=== PATIENT | male | born 1990 | race Caucasian/White ===

== ENCOUNTER 2022-01-28 22:19 | Emergency (ER) | payer MEDICAID, SELFPAY ==
[2022-01-28 22:26] VITALS: BP 130/63; PULSE 70; RESP 16; TEMP 36.6; O2SAT 100
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
--- NOTE | 2022-01-28 22:37 | DI.RAD_ITS ---
Exam(s) XR WRIST RT COMPLETE EXAM: XR WRIST RT COMPLETE CLINICAL HISTORY: trauma. TECHNIQUE: 2D digital imaging was performed. COMPARISON: No exams were available for comparison FINDINGS: 3 views No evidence of fracture or dislocation. Mild negative ulnar variance noted. Scaphoid and scapholuna te distance are normal. No degenerative changes. No osseous lesions. No radiopaque foreign body. IMPRESSION: No significant findings DATA REPOSITORY: RADIATION DOSE DELIVERED:
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
== END 2022-01-28 23:49 | disposition home or self-care (01) ==
PROVIDERS: Emergency Provider Nurse Practitioner Family
DX: S63.501A Unspecified sprain of right wrist, initial encounter (principal); S40.212A Abrasion of left shoulder, initial encounter; S30.811A Abrasion of abdominal wall, initial encounter; S40.812A Abrasion of left upper arm, initial encounter; V86.56XA Driver of dirt bike or motor/cross bike injured in nontraffic accident, initial encounter
CPT/HCPCS: 29125; 99284; 73090; 73110; 99282

== ENCOUNTER 2023-08-28 12:42 | Emergency (ER) | payer MEDICAID, SELFPAY ==
--- NOTE | 2023-08-28 12:30 | RT.EKG_ITS ---
APPROVED REPORT Exam: Resting ECG Reason for Exam: chest pain Patient Location: E HR:74 bpm ECG Measurements Heart Rate 74 AXIS AR 155 P 73 QRSd 102 QRS 72 QT 373 T 61 QTc 413 Conclusion Sinus rhythm...normal P axis, V-rate 60- 99 ST elevation suggests acute pericarditis...ST >0.10mV, ant/lat/inf sinus rhythm, normal axis, normal intervals, J point elevations
[2023-08-28 12:48] VITALS: BP 144/78; PULSE 87; RESP 16; TEMP 36.6; O2SAT 98
[2023-08-28 13:02] VITALS: RESP 16
[2023-08-28] MEDS: Colchicine 0.6 MG TAB PO (13:40)
[2023-08-28] MEDS: Ketorolac 15 MG/ML VIAL IVP (13:41)
--- NOTE | 2023-08-28 13:43 | ED.GENADUL_ITS ---
Discharge Plan Disposition Patient Disposition: Home Condition: Stable Discharge Details Clinical Impression: Chest pain Primary Care Provider: Unknown,Unknown ED Provider: Raymond Ramos Home Meds and New Rx's Prescriptions: New colchicine 0.6 mg capsule 0.6 mg PO BID 10 Days Qty: 20 0RF Rx Instructions: take 0.6 mg BID until symptoms resolve, then transition to 0.6mg ONCE daily dose ibuprofen 600 mg tablet 600 mg PO TID 10 Days Qty: 30 0RF Rx Instructions: take 600 mg TID until symptoms resolve, then taper to 600 mg once daily Discharge Instructions Instructions: Chest Pain (ED), Acute Pericarditis (ED) Additional Instructions: Please return to the emerged part for any worsening symptoms HPI General Date/Time Provider Initiated Documentation: 08/28/23 13:26 . HPI Narrative: 32-year-old male no past medical history presents with sharp chest discomfort worse in certain positions; denies recent immobilization surgery trauma or other thromboembolic risk factors. No history of coronary disease. No recent foreign travel. Denies leg swelling or pain Related Data Home Medications Medication Instructions Recorded Confirmed colchicine 0.6 mg capsule 0.6 mg PO BID 10 days #20 caps 08/28/23 ibuprofen 600 mg tablet 600 mg PO TID 10 days #30 tabs 08/28/23 Previous Rx's Medication Instructions Recorded colchicine 0.6 mg capsule 0.6 mg PO BID 10 days #20 caps 08/28/23 ibuprofen 600 mg tablet 600 mg PO TID 10 days #30 tabs 08/28/23 Allergies Allergy/AdvReac Type Severity Reaction Status Date / Time bees Allergy Hives Uncoded 08/28/23 12:48 General Stated Complaint: Chest Pain SHIRLEY: 3 Review of Systems Narrative: Review of Systems Constitutional: negative Eyes: negative ENT: negative Cardiovascular: Chest pain Respiratory: negative Gastrointestinal: negative : negative Musculoskeletal: negative Skin: negative Neurologic: negative Psych: negative Exam Narrative Exam Narrative: Physical Examination General: alert, awake, cooperative, resting comfortably, no acute distress HEENT: normocephalic, atraumatic; PERRL, EOM intact, conjunctiva normal; no nasal discharge; moist mucous membranes, oral and pharyngeal mucosa normal, tolerating secretions Neck: supple, trachea midline; full ROM Chest: normal to inspection Respiratory: normal respiratory effort, speaking in full sentences Skin: no lesions, rashes or trauma appreciated Neuro: AAOx3, normal speech, moving all extremities Extremities: No peripheral edema Psych: Appropriate mood and affect Course Vital Signs Vital signs: Vital Signs Temperature 36.6 C 08/28/23 12:48 Pulse 87 08/28/23 12:48 Respiratory Rate 16 08/28/23 12:48 Blood Pressure 144/78 H 08/28/23 12:48 Pulse Oximetry 98 08/28/23 12:48 Temperature 36.6 C 08/28/23 12:48 Temperature Source Temporal Artery Scan 08/28/23 12:48 Pulse 87 08/28/23 12:48 Respiratory Rate 16 08/28/23 13:02 Respiratory Effort Normal, Non-Labored 08/28/23 13:02 Respiratory Depth Normal 08/28/23 13:02 Respiratory Pattern Normal 08/28/23 13:02 Blood Pressure 144/78 H 08/28/23 12:48 Blood Pressure Position Sitting 08/28/23 12:48 Pulse Oximetry 98 08/28/23 12:48 Oxygen Delivery Method Room Air 08/28/23 12:48 Oxygen Flow Rate 0 08/28/23 12:48 Pain Level 0 08/28/23 13:02 Medical Decision Making 32-year-old male presents with 1 day of intermittent sharp chest discomfort worse with position. No thromboembolic risk factors, no coronary disease risk factors. No recent trauma no recent surgery no recent foreign travel no leg s welling or pain. Patient is normoxic normal heart rate EKG showing likely J- point elevation versus must consider pericarditis pattern; low suspicion for PE or aortic pathology. Muscles consider pneumothorax versus pleurisy versus costochondritis versus muscular strain; [id number] cardiac ultrasound showing normal ventricular squeeze, no pericardial effusion, normal thickness pericardium; will obtain screening labs, troponin, chest x-ray, will load with colchicine and NSAID. Will presumptively treat as pericarditis if any signs of myopericarditis will consider admission for further inpatient diagnostics and treatment 15: 04 patient resting early no acute distress. No shortness of breath. Intermittent minor sharp left anterior chest discomfort with movement. Upon second review of EKG consider likely J-point elevation versus true diffuse ST segment elevation patient has no elevation of white count or ESR. Had extensive shared decision discussion with patient regarding treatment versus watchful waiting of symptomatology regarding possible pericarditis. Consider high likelihood of costochondritis versus pleurisy. Low suspicion for ACS and PE. I will prescribe patient high-dose NSAID regimen as well as colchicine regiment for him to initiate if symptoms persist over the next couple days however patient feels acutely better is asymptomatic and stable consider not taking medications given side effect profile. Given strict return precautions for any worsening symptoms. Patient understands and is in agreement. Quality:SDOH Health Related Social Needs: No Data to Display PFSH All Active Problems (Updated 08/28/23 @ 15:17 by Raymond Ramos MD) Chest pain (Acute) Social History Smoking/Tobacco Use Status: Never Smoking risk assessment performed?: Yes Alcohol Intake: current Alcohol Intake frequency: holidays/special occasions only Alcohol type: beer Drug use: Never Substance use type: does not use Housing: house Do you feel safe at home: Yes Do you feel safe in your relationship?: Yes
[2023-08-28 13:54] LABS: Abs Immature Grans 0.02 10^3/uL (0.0-0.06); Absolute Basophil Count 0.06 10^3/uL (0.0-0.2); Absolute Eosinophil Count 0.06 10^3/uL (0.0-0.7); Absolute Lymphocyte Count 1.76 10^3/uL (1.2-3.4); Absolute Monocyte Count 0.56 10^3/uL (0.1-0.8); Basophils % 0.8; Eosinophils % 0.8; HCT 45.1 % (40.0-50.0); HGB 15.3 g/dL (13.5-17.5); Immature Grans % 0.3; MCH 30.8 pg (27.0-33.0); MCHC 33.9 % (32.0-36.0); MCV 91 fL (80-95); MPV 10.8 fL (8.0-11.0); Monocytes % 7.3; Neutrophils % 67.8; Platelet Count 296 10^3/uL (130-400); RBC 4.97 10^6/uL (4.36-5.78); RDW 12.6 % (11.8-14.1); RDW-SD 41.5 fL; WBC 7.66 10^3/uL (4.4-10.8)
[2023-08-28 13:57] LABS: ESR 4 mm/hr (0-15)
[2023-08-28 14:20] LABS: ALT 33 U/L (16-63); AST 20 U/L (15-37); Albumin 4.1 g/dL (3.4-5.0); Alkaline Phosphatase 41 U/L (46-116); BUN 19 mg/dL (7-18); Bilirubin, Total 0.5 mg/dL (0.2-1.0); CREATININE 0.8 mg/dL (0.70-1.30); Calcium 9.1 mg/dL (8.5-10.1); Chloride 103 mmol/L (98-107); Estimated GFR 121.34 (mL/min/1.73m2); Glucose 84 mg/dL (74-106); NT-proBNP 31 pg/mL (<300); Sodium 142 mmol/L (136-145); Total Protein 7.8 g/dL (6.4-8.2); Troponin I < 50 ng/L (< or =60)
[2023-08-28 14:35] LABS: INR 1.1 (0.9-1.1); Prothrombin Time 10.8 sec (9.1-11.1)
--- NOTE | 2023-08-28 14:41 | DI.RAD_ITS ---
Exam(s) XR CHEST 2V PA LATERAL EXAM: XR CHEST 2V PA LATERAL CLINICAL HISTORY: postional chest pain. TECHNIQUE: 2D digital imaging was performed. COMPARISON: No exams were available for comparison FINDINGS: 2 views: Heart size is normal. The mediastinum is not widened. Lungs are clear. No infiltrates nor pleural effusions. IMPRESSION: No acute pulmonary findings. DATA REPOSITORY: RADIATION DOSE DELIVERED:
== END 2023-08-28 15:53 | disposition home or self-care (01) ==
LOC: ER 15:56
PROVIDERS: Emergency Provider Emergency Medicine
DX: R07.9 Chest pain, unspecified (principal); R06.02 Shortness of breath
CPT/HCPCS: 80053; 85652; 93005; 96374; 99285; 71046; 83880; 84484; 85025; 85610; 85730; 93010; 99284; J1885

== ENCOUNTER 2025-05-04 13:16 | Emergency (ER) | payer MEDICAID, SELFPAY ==
[2025-05-04 13:24] VITALS: BP 110/62; PULSE 81; RESP 16; TEMP 37.1; O2SAT 98
--- NOTE | 2025-05-04 13:55 | DI.RAD_ITS ---
Exam(s) XR HAND RT COMPLETE EXAM: XR HAND RT COMPLETE CLINICAL HISTORY: hand pain. TECHNIQUE: 2D digital imaging was performed. Three views. COMPARISON: CR,XR XR WRIST RT COMPLETE from 01/28/2022 FINDINGS: BONES: No acute fracture is present. Old healed 5th metacarpal fracture. No bony destructive lesion is seen. JOINTS: No dislocation present. SOFT TISSUE: Normal. IMPRESSION: No acute abnormality. DATA REPOSITORY: RADIATION DOSE DELIVERED:
--- NOTE | 2025-05-04 14:34 | ED.GENADUL_ITS ---
Discharge Plan Disposition Patient Disposition: Home Condition: Good Discharge Details Clinical Impression: Injury of hand, right Primary Care Provider: Unknown,Unknown ED Provider: Lio Epstein Discharge Instructions Instructions: Finger Sprain ED Additional Instructions: At this time your x-ray shows no evidence of fracture. Please wear the wrist splint at all times. Please follow-up closely with your primary care provider for further discussion of outpatient MRI of your wrist and thumb. Please apply topical Voltaren gel/diclofenac gel as needed for pain. If you notice any worsening of your symptoms, or any new symptoms such as vomiting, diarrhea, fever, chills, shortness of breath, chest pain, numbness, weakness, or fainting , please return immediately to the emergency department for reevaluation. Please follow up with your primary care provider as soon as possible for reassessment and reevaluation. As always, it was a pleasure participating in your medical care today. Stand Alone Forms: Portal Information Referrals: Yaritza Thorpe [ [facility] STAFF PHYSICIAN, Medicine] Discharge Data Discharge Date/Time-TO BE ENTERED AT DEPARTURE: 05/04/25 14:49 HPI General Date/Time Provider Initiated Documentation: 05/04/25 13:29 . HPI Narrative: This is a 34-year-old [id number] male who presents today for evaluation of right hand and thumb pain. Patient states that on March 26 he was working and something pushed back on his thumb and hyperextended it back towards his wrist. Since then he has had mild to moderate pain, worse with movement. He has been using an over the the counter brace to help with some stabilization. He denies any numbness or tingling. 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 He denies any other complaints at this time. No other modifying factors. Related Data Allergies Allergy/AdvReac Type Severity Reaction Status Date / Time bees Allergy Hives Uncoded 05/04/25 13:25 General Stated Complaint: Orthopedic SHIRLEY: 4 Exam Narrative Exam Narrative: 1.Const: Well-nourished, Well-developed, appearing stated age 2.Eyes: PERRL, no conjunctival injection, and symmetrical lids. 3.ENT: Atraumatic external nose and ears. Moist MM. Neck: Symmetric, trachea midline, No thyromegaly. 4.CVS: +S1/S2, Peripheral pulses 2+ and equal in all extremities. Brisk capillary refill in all extremities. 5.RESP: Unlabored respiratory effort. Clear to auscultation bilaterally. No wheezes rales or rhonchi 6.GI: Soft, Nontender/Nondistended, No hepatosplenomegaly. No guarding or rebound. 7.MSK: Normocephalic/Atraumatic, Extremities w/o deformity. No cyanosis or clubbing, Normal movement of all extremities Right hand: Symmetrically palpable radial and ulnar pulses. Capillary refill less than 2 seconds to all digits. Intact sensation to light touch of the radial, median and ulnar nerves demonstrated by testing in the dorsal web space of the thumb, the distal palmar aspect of the index finger, and the lateral surface of the fifth finger. 2 point discrimination intact to 5mm (up to 6mm can be normal in digits 3-5) of discrimination in the affected digit. Intact motor function of the radial, median and ulnar nerves demonstrated by strength of extension of the isolated distal joint of the index finger, hand certified orthotist practice manager, and spreading of the 2nd through 5th digits. Intact recurrent median nerve as demonstrated by ability to move thumb fully through opposition, abduction and flexion. No focal snuffbox tenderness however there is pain just slightly distal to that on the proximal first metacarpal. Mild pain at the palmar aspect of the thumb at the proximal MCP joint when strain is made against the medial collateral ligament. No redness, no swelling. No atypical warmth. 8.Skin: Warm, Dry. No rashes or lesions. 9.Neuro: hose wrapper II-XII grossly intact. Sensation grossly intact, no focal neurologic deficits. 10.Psych: (AAO) x3. Appropriate mood and affect Course Vital Signs Vital signs: Vital Signs Temperature 37.1 C 05/04/25 13:24 Pulse 81 05/04/25 13:24 Respiratory Rate 16 05/04/25 13:24 Blood Pressure 110/62 05/04/25 13:24 Pulse Oximetry 98 05/04/25 13:24 Temperature 37.1 C 05/04/25 13:24 Pulse 81 05/04/25 13:24 Respiratory Rate 16 05/04/25 13:24 Blood Pressure 110/62 05/04/25 13:24 Pulse Oximetry 98 05/04/25 13:24 Medical Decision Making This is a 34-year-old [id number] male who presents today for evaluation of right hand and thumb pain. Patient states that on March 26 he was working and something pushed back on his thumb and hyperextended it back towards his wrist. Since then he has had mild to moderate pain, worse with movement. He has been using an over the the counter brace to help with some stabilization. He denies any numbness or tingling. 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 He denies any other complaints at this time. No other modifying factors. Intact recurrent median nerve as demonstrated by ability to move thumb fully through opposition, abduction and flexion. No focal snuffbox tenderness however there is pain just slightly distal to that on the proximal first metacarpal. Mild pain at the palmar aspect of the thumb at the proximal MCP joint when strain is made against the medial collateral ligament. Tenderness appears to be around the location of the ulnar collateral ligament, as well as at the base of the first metacarpal, but not at the anatomic snuffbox. Concern for fracture versus ligamentous injury. X-ray shows no evidence of acute fracture. The patient's [id number] wrist splint/thumb stabilizer does not give adequate support for the thumb in general. Formal thumb spica splint was applied. Patient tolerated this well. I do suspect the patient would benefit from a nonemergent MRI for further differentiation and evaluation of the thumb and injury mechanism. I discussed this with the patient, and he will be following up closely with his primary care provider. I have extensively reviewed the treatment plan and discharge instructions with the patient. I have addressed all patient concerns at this time. The patient was made aware of what symptoms to monitor for that would warrant a return to the emergency department. Discussed the plan with the patient, they demonstrate verbal understanding and agreement with our assessment and plan at this time. The documentation in this chart was dictated using Ep[employer] dictation software. Please excuse any dictation errors. FINDINGS: BONES: No acute fracture is present. Old healed 5th metacarpal fracture. No bony destructive lesion is seen. JOINTS: No dislocation present. SOFT TISSUE: Normal. IMPRESSION: No acute abnormality. DATA REPOSITORY: [facility] All Active Problems (Updated 05/04/25 @ 14:37 by Lio Epstein DO) Injury of hand, right (Acute) Social History Smoking/Tobacco Use Status: Never Smoking risk assessment performed?: Yes Alcohol Intake: current Alcohol Intake frequency: holidays/special occasions only Alcohol type: beer Drug use: Never Substance use type: does not use Housing: house Do you feel safe at home: Yes Do you feel safe in your relationship?: Yes
== END 2025-05-04 14:49 | disposition home or self-care (01) ==
LOC: ER 14:49
PROVIDERS: Emergency Provider Student in an Organized Health Care Education/Training Program
DX: S60.921A Unspecified superficial injury of right hand, initial encounter (principal); X58.XXXA Exposure to other specified factors, initial encounter
CPT/HCPCS: 99283; 73130